=== PATIENT | male | born 1975 | race Caucasian/White ===

== ENCOUNTER 2017-05-18 19:36 | Emergency (ER) | payer MEDICAID, OTHER ==
[~2017-05-18] VITALS: Ht 162.6 cm; Wt 86.0 kg
[2017-05-19] MEDS: KETOROLAC 30MG/ML VIAL IM ONE (01:08)
[2017-05-19] MEDS: ONDANSETRON HCL 4MG TABLET PO ONE (01:08)
[2017-05-19 05:19] VITALS: BP 131/94
== END 2017-05-19 05:23 | disposition home or self-care (01) ==
LOC: ER 21:04
DX: S02.2XXA Fracture of nasal bones, initial encounter for closed fracture (principal); R03.0 Elevated blood-pressure reading, without diagnosis of hypertension; Y04.0XXA Assault by unarmed brawl or fight, initial encounter; Y93.89 Activity, other specified; Y99.8 Other external cause status; Y92.89 Other specified places as the place of occurrence of the external cause; Z98.890 Other specified postprocedural states
CPT/HCPCS: 70486; 96372; 99284; J1885; Q0162

== ENCOUNTER 2020-04-21 13:05 | Emergency (ER) | payer MEDICAID ==
[~2020-04-21] VITALS: Ht 172.7 cm; Wt 80.0 kg
[2020-04-21] MEDS ORDERED: ACETAMINOPHEN 325MG TABLET PO STA (13:32)
[2020-04-21] MEDS ORDERED: IBUPROFEN 600MG TABLET PO STA (13:32)
[2020-04-21 15:48] LABS: BASOPHILS % 0.3 % (0.0-2.0); HEMATOCRIT. 52.8 % (42.0-52.0); HEMOGLOBIN. 17.5 g/dL (14.0-18.0); MEAN CORPUSCULAR HEMOGLOBIN 28.4 pg (28.0-32.0); MEAN CORPUSCULAR VOLUME 85.8 fL (80.0-94.0); MEAN PLATELET VOLUME 8.5 fl (7.4-10.4); MONOCYTES % 7.4 % (2.0-8.0); NEUTROPHILS % 68.3 % (40.0-76.0); PLATELET 238 x1000/uL (130-400); RED BLOOD CELL COUNT 6.16 mill/uL (4.7-6.1); RED CELL DISTRIBUTION WIDTH 12.8 % (11.6-14.6)
[2020-04-21 15:53] LABS: CHLORIDE 97 mEq/L (98-107)
[2020-04-21 17:18] VITALS: BP 123/85
== END 2020-04-21 17:15 | disposition home or self-care (01) ==
LOC: ER 13:05
DX: U07.1 COVID-19 (principal); R03.0 Elevated blood-pressure reading, without diagnosis of hypertension
CPT/HCPCS: 36415; 71045; 80053; 85025; 99284